=== PATIENT | female | born 1975 | race Caucasian/White ===

== ENCOUNTER → 2019-02-26 | Outpatient (CLI) | payer OTHER ==
--- NOTE | 2019-02-26 19:29 | RAD ---
EXAM DESCRIPTION: Wrist, left 3 Views : CLINICAL HISTORY: PAIN . COMPARISON: None . TECHNIQUE: Three view x-ray examination of left wrist is submitted. FINDINGS: There is no evidence of fracture, subluxation, dislocation or deformity. There is no evidence of soft tissue swelling. The bones are normally mineralized . The visualized joint spaces are normal. IMPRESSION: No evidence of fracture. Unremarkable study. Electronically signed by: Rosemary Ha MD 02/26/2019 7:28 PM CDT
== END ==
LOC: RAD 18:55
PROVIDERS: ATTEND Nurse Practitioner Family
DX: M25.532 Pain in left wrist (principal)

== ENCOUNTER → 2019-11-20 | Outpatient (CLI) | payer OTHER | LOC: GMAJ 16:51 | PROVIDERS: ATTEND Family Medicine | DX: E83.110 Hereditary hemochromatosis (principal); E03.8 Other specified hypothyroidism ==